=== PATIENT | male | born 1965 | race Caucasian/White ===

== ENCOUNTER 2016-09-08 19:31 | Emergency (ER) | payer BC, OTHER ==
[2016-09-08] MEDS ORDERED: OXYCODONE-ACETAMINOPHEN 5-325 MG TABLET PO ONE (19:49)
[2016-09-08] MEDS ORDERED: LIDOCAINE 1% INJ-PF (10 MG/ML) 30 ML SDV INJ ONE (19:49)
[2016-09-08] MEDS ORDERED: CEPHALEXIN 500 MG CAPSULE PO ONE (19:50)
[2016-09-08] MEDS ORDERED: DIPH/PERTUSS(ACELL)/TETANUS VAC/PF 0.5 ML SYR (>=10YO) IM ONE (19:50)
--- NOTE | 2016-09-08 21:28 | ER Document Report ---
HPI - HPI Patient complains to provider of: laceration Pain Level: 2 Context: patient is a 51 year old male who was working with a grinding wheel when it fell apart and caused pain and laceration to dorsal aspect of left 5th mid phalanx. tetanus not UTD, no PMH, no PCP - DERM Skin Color: Normal, [place] Past Medical History - Social History Smoking Status: Current Every Day Smoker Family History: Reviewed & Not Pertinent Patient has suicidal ideation: No Patient has homicidal ideation: No - Past Medical History Cardiac Medical History: Reports: Hx Hypercholesterolemia, Hx Hypertension Pulmonary Medical History: Reports: Hx Bronchitis Renal/ Medical History: Reports: Hx Kidney Stones, Hx Peritoneal Dialysis - [place] Malignancy Medical History: Reports Hx Skin Cancer Past Surgical History: Reports: Hx Oral Surgery, Hx Umbilical Hernia - Immunizations Immunizations up to date: Yes Hx Diphtheria, Pertussis, Tetanus Vaccination: Yes Vertical Provider Document - CONSTITUTIONAL Agree With Documented VS: Yes Exam Limitations: No Limitations General Appearance: WD/WN, No Apparent Distress - INFECTION CONTROL TRAVEL OUTSIDE OF THE [place] IN LAST 30 DAYS: No - RESPIRATORY O2 Sat by Pulse Oximetry: 97 - CARDIOVASCULAR Pulses: Normal: Radial Notes: capillary refill < 2 seconds in all UE digits - MUSCULOSKELETAL/EXTREMETIES Musculoskeletal/Extremeties: MAEW, FROM, Tender, No Edema, Eccymosis Notes: no evidence of vessel or tendon involvement - NEURO Level of Consciousness: Awake, Alert, Appropriate Motor/Sensory: No Motor Deficit, No Sensory Deficit - DERM Integumentary: Laceration - 3cm Course - Re-evaluation Re-evalutation: 09/08/16 21:29 lac irrigated and closed with 6.0 nylon. PO keflex given. xray cannot r/o occult fracture, will reimage in 7-10 days - Vital Signs Vital signs: Temp Pulse Resp BP Pulse Ox 98.1 F 88 14 156/101 H 97 09/08/16 19:33 09/08/16 19:33 09/08/16 19:33 09/08/16 19:33 09/08/16 19:33 Procedures - Laceration/Wound Repair Left Finger Wound length (cm): 3 Wound's Depth, Shape: Superficial, Linear Laceration pre-procedure: Sterile PPE donned, Betadine prep applied, Sterile drapes applied Anesthetic type: 1% Lidocaine Volume Anesthetic (mLs): 4 Wound explored: Clean, No foreign body removed Irrigated w/ Saline (mLs): 200 - betadine as well Wound Debrided: Minimal Wound Repaired With: Sutures Suture Size/Type: 6:0, Nylon Number of Sutures: 4 Layer Closure?: No Post-procedure wound care: Sterile dressing applied Post-procedure NV exam normal: Yes Complications: No Discharge - Discharge Clinical Impression: Laceration Condition: Good Disposition: HOME, SELF-CARE Instructions: Antibiotic Ointment Protection ([facility]), Soap Cleansing ([facility]), Tetanus Immunization Given ([facility]), Prophylactic Antibiotic ([facility]), Laceration Care ([facility]), Oral Narcotic Medication ([facility]), Use of Yedv-Nny-Qyqlyrh Ibuprofen ( [facility]) Additional Instructions: You will need to follow up in 8-10 days to have your finger re-imaged to rule out fracture and have your stitches removed. Prescriptions: Tramadol HCl 50 mg PO Q8HP PRN #6 tablet PRN Reason: Cephalexin Monohydrate [Keflex 500 mg Capsule] 500 mg PO BID 7 Days Forms: Elevated Blood Pressure
[2016-09-09 06:39] VITALS: BP 137/95
== END 2016-09-08 21:35 | disposition home or self-care (01) ==
LOC: ER 19:31
PROC: 0HQGXZZ Repair Left Hand Skin, External Approach (ICD-10-PCS; principal; 2016-09-08)
DX: S61.217A Laceration without foreign body of left little finger without damage to nail, initial encounter (principal); W29.8XXA Contact with other powered hand tools and household machinery, initial encounter; Z23 Encounter for immunization; F17.200 Nicotine dependence, unspecified, uncomplicated; E78.00 Pure hypercholesterolemia, unspecified; I10 Essential (primary) hypertension; Z87.442 Personal history of urinary calculi; Z85.828 Personal history of other malignant neoplasm of skin
CPT/HCPCS: 12002; 99283; 90471; 73130; 90715; J3490

== ENCOUNTER 2018-06-05 09:30 | Emergency (ER) | payer BC, OTHER ==
[2018-06-05] MEDS ORDERED: ASPIRIN 81 MG TABLET, CHEWABLE PO ONE (09:51)
--- NOTE | 2018-06-05 09:52 | ER Document Report ---
ED General - General Chief Complaint: Shoulder Pain Stated Complaint: LEFT SHOULDER PAIN Time Seen by Provider: 06/05/18 09:32 Mode of Arrival: Ambulatory Information source: Patient Notes: 53 male presents to ED for complaint of left shoulder pain times a week. He states on vacation he had right shoulder pain that traveled to the left shoulder blade. He states it came around to his right abdomen up to his epigastric area. He states last night it moved up the center of his chest into his jaw. He has a history of elevated blood pressure and his blood pressure is elevated at this time of 173/114. He is on lisinopril hydrochlorothiazide. TRAVEL OUTSIDE OF THE [place] IN LAST 30 DAYS: No - HPI Onset: Last week Onset/Duration: Gradual Severity: Severe Pain Level: 5 Associated symptoms: Other - See HPI Exacerbated by: Denies Relieved by: Denies Similar symptoms previously: Yes Recently seen / treated by doctor: Yes - Related Data Allergies/Adverse Reactions: No Known Allergies Allergy (Verified 06/05/18 09:31) Past Medical History - General Information source: Patient - Social History Smoking Status: Never Smoker Cigarette use (# per day): No Chew tobacco use (# tins/day): No Smoking Education Provided: No Frequency of alcohol use: Social Drug Abuse: None Lives with: Family Family History: Reviewed & Not Pertinent Patient has suicidal ideation: No Patient has homicidal ideation: No - Past Medical History Cardiac Medical History: Reports: Hx Hypercholesterolemia, Hx Hypertension Pulmonary Medical History: Reports: Hx Bronchitis EENT Medical History: Reports: None Neurological Medical History: Reports: None Endocrine Medical History: Reports: None Renal/ Medical History: Reports: Hx Kidney Stones Malignancy Medical History: Reports Hx Skin Cancer GI Medical History: Reports: None Musculoskeletal Medical History: Reports None Skin Medical History: Reports None Psychiatric Medical History: Reports: None Traumatic Medical History: Reports: None Infectious Medical History: Reports: None Past Surgical History: Reports: Hx Oral Surgery, Hx Umbilical Hernia - Immunizations Immunizations up to date: Yes Hx Diphtheria, Pertussis, Tetanus Vaccination: Yes Review of Systems - Review of Systems Constitutional: No symptoms reported EENT: No symptoms reported Cardiovascular: No symptoms reported Respiratory: No symptoms reported Gastrointestinal: Abdominal pain - Epigastric radiates up through the chest to the jaw, Nausea Genitourinary: No symptoms reported Male Genitourinary: No symptoms reported Musculoskeletal: Back pain - Subscapular Skin: No symptoms reported Hematologic/Lymphatic: No symptoms reported Neurological/Psychological: No symptoms reported -: Yes All other systems reviewed and negative Physical Exam - Vital signs Vitals: Temp Pulse Resp BP Pulse Ox 98.4 F 96 16 173/114 H 100 06/05/18 09:37 06/05/18 09:37 06/05/18 09:37 06/05/18 09:37 06/05/18 09:37 Interpretation: Normal - General General appearance: Appears well, Alert - HEENT Head: Normocephalic, Atraumatic Eyes: Normal Pupils: PERRL - Respiratory Respiratory status: No respiratory distress Chest status: Nontender Breath sounds: Normal Chest palpation: Normal - Cardiovascular Rhythm: Regular Heart sounds: Normal auscultation Murmur: No - Abdominal Inspection: Normal Distension: No distension Bowel sounds: Normal Tenderness: Tender - Epigastric Organomegaly: No organomegaly - Back Back: Normal, Nontender - Extremities General upper extremity: Normal inspection, Nontender, Normal color, Normal ROM, Normal temperature General lower extremity: Normal inspection, Nontender, Normal color, Normal ROM, Normal temperature, Normal weight bearing. No: Ottoniel's sign - Neurological Neuro grossly intact: Yes Cognition: Normal Orientation: AAOx4 [place] Coma Scale Eye Opening: Spontaneous [place] Coma Scale Verbal: Oriented [place] Coma Scale Motor: Obeys Commands [place] Coma Scale Total: 15 Speech: Normal Motor strength normal: LUE, RUE, LLE, RLE Sensory: Normal - Psychological Associated symptoms: Normal affect, Normal mood - Skin Skin Temperature: Warm Skin Moisture: Dry Skin Color: Normal Course - Re-evaluation Re-evalutation: 06/05/18 21:14 Dr. Coleman was consulted about this patient this morning. He recommended that complete cardiac workup be completed. When the cardiac workup was negative on the first test he stated that he would need a repeat troponin and EKG. The repeat EKG and troponin were unchanged from the first ones. He stated patient could be discharged home. Patient was discharged home with a copy of all of his blood work his x-rays and CD of the x-rays to [facility]. Patient was also discharged home with muscle relaxers for the scapular pain. - Vital Signs Vital signs: Temp Pulse Resp BP Pulse Ox 98.3 F 96 20 152/94 H 96 06/05/18 14:01 06/05/18 09:37 06/05/18 14:38 06/05/18 14:38 06/05/18 14:38 - Laboratory Result Diagrams: 06/05/18 09:45 06/05/18 09:45 Laboratory results interpreted by me: 06/05/18 09:45 Glucose 133 H - Diagnostic Test Radiology reviewed: Image reviewed, Reports reviewed Discharge - Discharge Clinical Impression: Pain of left scapula Upper respiratory infection Qualifiers: URI type: unspecified URI Qualified Code(s): J06.9 - Acute upper respiratory infection, unspecified Chest pain Qualifiers: Chest pain type: unspecified Qualified Code(s): R07.9 - Chest pain, unspecified Condition: Stable Disposition: HOME, SELF-CARE Additional Instructions: You were seen for upper back pain that progressed around to your abdomen up to your chest and into your jaw. You state you had been coughing before the pain started. UPPER RESPIRATORY ILLNESS: You have a viral infection of the respiratory passages -- a "cold." This common infection causes nasal congestion, drainage, and often sore throat and cough. It is highly contagious. The disease usually lasts about 10 to 14 days. There is no "cure" for the viral infection -- it must run its course. If there is a complication, such as bacterial infection in the nose, sinuses, middle ear, or bronchial tubes, antibiotics may be required. The antibiotics won't affect the virus. Drink plenty of fluids. A humidifier may help. An expectorant medication or decongestant may make you more comfortable. Use acetaminophen or ibuprofen for fever or aches. See the doctor if fever persists over two days, if there is any significant worsening of your symptoms, or if you simply fail to improve as expected. CHEST PAIN OF UNCLEAR CAUSE: The exact cause of your chest pain isn't clear. Fortunately, there is no evidence of a dangerous medical condition. Further testing may be required to find the source of the pain. Most often, we find that this pain is coming from the chest wall -- the muscles or rib joints in the chest. But chest pain can come from the lung and lung lining, the esophagus, the heart valves or heart lining, and even the stomach or gallbladder. Rest. Eat lightly until the pain is gone. We may prescribe medicine for pain and inflammation. You should call the physician immediately if the pain radiates to the shoulder, jaw or arms; if you start to run a fever or develop a cough; or if you develop shortness of breath, or other new or alarming symptoms. ASPIRIN: Aspirin has been shown to have a beneficial effect on blood circulation by reducing the clotting effect of platelets in the blood. These beneficial effects can be achieved by taking just a single baby (81 mg) aspirin a day. It is recommended that any person over the age of forty take a single baby aspirin every day for heart and brain circulation, unless you are allergic to aspirin or have some significant bleeding disorder. It is strongly recommended that people who have proven cardiac or blood circulation disturbances should take a baby aspirin every day. COUGH-SUPPRESSANT & EXPECTORANT MEDICATION: You are to use a cough medication as needed for relief of symptoms. This medicine is a combination of an expectorant (to make the mucous thinner and more easily "coughed up") and a cough suppressant (to reduce the frequency of coughing). The cough-suppressant medicine is related to narcotics. You may experience mild nausea and sleepiness. Some patients who are very sensitive to narcotics may have stomach pain from this medicine. Taking the medicine with food reduces these side effects. Do not drive or work with machinery until you know how this medicine affects you. The expectorant should have no side effects. Iodine-containing expectorants (such as organidin) should not be taken by persons with active thyroid disease unless approved by your doctor. Call the doctor if you develop shortness of breath, hives, rash, itching, lightheadedness, or severe nausea and vomiting. FOLLOW-UP CARE: If you have been referred to a physician for follow-up care, call the physicians office for an appointment as you were instructed or within the next two days. If you experience worsening or a significant change in your symptoms, notify the physician immediately or return to the Emergency Department at any time for re-evaluation. Prescriptions: Cyclobenzaprine HCl [Flexeril 10 mg Tablet] 10 mg PO TIDP PRN #15 tab PRN Reason: Forms: Elevated Blood Pressure, Return to Work
[2018-06-05 10:04] LABS: ABSOLUTE EOSINOPHILS # (AUTO) 0.1 10^3/uL (0.0-0.6); ABSOLUTE LYMPHOCYTES (AUTO) 1.6 10^3/uL (0.5-4.7); ABSOLUTE MONOCYTES (AUTO) 0.7 10^3/uL (0.1-1.4); ABSOLUTE NEUT (AUTO) 3.4 10^3/uL (1.7-8.2); BASOPHILS % (AUTO) 0.6 % (0-2); EOSINOPHILS % (AUTO) 1.2 % (0-6); HEMATOCRIT 46.5 % (37.9-51.0); HEMOGLOBIN 16.2 g/dL (13.5-17.0); LYMPHOCYTES % (AUTO) 27.6 % (13-45); MEAN CORPUSCULAR HEMOGLOBIN 29.3 pg (27.0-33.4); MEAN CORPUSCULAR VOLUME 84 fl (80-97); MONOCYTES % (AUTO) 12.2 % (3-13); PLATELET COUNT 263 10^3/uL (150-450); RED BLOOD COUNT 5.54 10^6/uL (4.35-5.55); RED CELL DISTRIBUTION WIDTH 12.7 % (11.5-14.0); SEGMENTED NEUTROPHILS % (AUTO) 58.4 % (42-78); TOTAL CELLS COUNTED % (AUTO) 100 %; WHITE BLOOD COUNT 5.9 10^3/uL (4.0-10.5)
[2018-06-05 10:20] LABS: ALANINE AMINOTRANSFERASE 43 U/L (21-72); ALBUMIN 4.6 g/dL (3.5-5.0); ALKALINE PHOSPHATASE 86 U/L (38-126); ANION GAP 11 (5-19); ASPARTATE AMINO TRANSFERASE 38 U/L (17-59); BILIRUBIN,DIRECT 0.2 mg/dL (0.0-0.4); BILIRUBIN,TOTAL 0.6 mg/dL (0.2-1.3); BLOOD UREA NITROGEN 16 mg/dL (7-20); CALCIUM 9.5 mg/dL (8.4-10.2); CARBON DIOXIDE 27 mmol/L (22-30); CHLORIDE 100 mmol/L (98-107); GLUCOSE 133 mg/dL (75-110); LIPASE 51.7 U/L (23-300); POTASSIUM 3.9 mmol/L (3.6-5.0); TOTAL PROTEIN 7.6 g/dL (6.3-8.2)
--- NOTE | 2018-06-05 10:22 | RADIOLOGY REPORT (SQ) ---
EXAM DESCRIPTION: CHEST 2 VIEWS COMPLETED DATE/TIME: 06/05/2018 10:01 am REASON FOR STUDY: subscapular, and jaw pain COMPARISON: None. EXAM PARAMETERS: NUMBER OF VIEWS: two views TECHNIQUE: Digital Frontal and Lateral radiographic views of the chest acquired. RADIATION DOSE: NA LIMITATIONS: none FINDINGS: LUNGS AND PLEURA: There are streaky infiltrates noted in right perihilar region consistent with in atelectasis or pneumonia. MEDIASTINUM AND HILAR STRUCTURES: No masses or contour abnormalities. HEART AND VASCULAR STRUCTURES: Heart normal size. No evidence for failure. BONES: Upper dorsal scoliosis convex left. HARDWARE: None in the chest. OTHER: No other significant finding. IMPRESSION: Right perihilar discoid atelectasis or pneumonia. TECHNICAL DOCUMENTATION: JOB ID: [id number] [employer]- All Rights Reserved Reading location - IP/workstation name: [email or web address]
[2018-06-05 10:31] LABS: APPEARANCE,URINE CLEAR; BILIRUBIN,URINE NEGATIVE (NEGATIVE); COLOR,URINE STRAW; GLUCOSE, URINE NEGATIVE (NEGATIVE); KETONES,URINE NEGATIVE (NEGATIVE); LEUKOCYTE ESTERASE,URINE NEGATIVE (NEGATIVE); NITRITE,URINE NEGATIVE (NEGATIVE); PROTEIN,URINE NEGATIVE (NEGATIVE); URINE SPECIFIC GRAVITY 1.009; UROBILINOGEN,URINE NEGATIVE mg/dL (<2.0)
--- NOTE | 2018-06-05 10:44 | RADIOLOGY REPORT (SQ) ---
EXAM DESCRIPTION: U/S ABDOMEN LIMITED W/O DOP COMPLETED DATE/TIME: 06/05/2018 10:33 am REASON FOR STUDY: pain upper abdomen and sub scapula COMPARISON: None. TECHNIQUE: Dynamic and static grayscale images acquired of the abdomen and recorded on PACS. Additio nal selected color Doppler and spectral images recorded. LIMITATIONS: None. FINDINGS: PANCREAS: No masses. Visualized pancreatic duct normal caliber. LIVER: No masses. Increased echogenicity. LIVER VASCULATURE: Normal directional flow of the main portal vein and hepatic veins. GALLBLADDER: No stones. Normal wall thickness. Trace pericholecystic fluid. ULTRASOUND-DETECTED CARNES'S SIGN: Negative. INTRAHEPATIC DUCTS AND COMMON DUCT: CBD and intrahepatic ducts normal caliber. No filling defects. INFERIOR VENA CAVA: Normal flow. AORTA: Ectasia of the proximal abdominal aorta measuring up to 3.0 cm. RIGHT KIDNEY: Normal size. Normal echogenicity. No solid or suspicious masses. No hydronephrosis. No calcifications. PERITONEAL AND RIGHT PLEURAL SPACE: No ascites or effusions. OTHER: No other significant findings. IMPRESSION: 1. Hepatic steatosis. 2. Trace pericholecystic fluid, of uncertain significance as an isolated finding. No gallstones. N o gallbladder wall thickening. No biliary ductal dilatation. Negative sonographic Carnes's sign. C T may be used to further evaluate otherwise unexplained abdominal pain. 3. Ectasia of the proximal abdominal aorta measuring up to 3.0 cm. This could likewise be further e valuated by CT in the setting of acute abdominal pain. TECHNICAL DOCUMENTATION: JOB ID: [id number] [employer]- All Rights Reserved Reading location - IP/workstation name: [email or web address]
--- NOTE | 2018-06-05 12:45 | EKG REPORT ---
SEVERITY:- OTHERWISE NORMAL ECG - SINUS RHYTHM BORDERLINE LEFT AXIS DEVIATION : Confirmed by: Maritza Day MD 05-Jun-2018 12:44:13
[2018-06-05 14:40] VITALS: BP 152/94
--- NOTE | 2018-06-05 22:13 | EKG REPORT ---
SEVERITY:- OTHERWISE NORMAL ECG - SINUS RHYTHM LEFT AXIS DEVIATION : Confirmed by: Maritza Day MD 05-Jun-2018 22:12:15
== END 2018-06-05 14:51 | disposition home or self-care (01) ==
LOC: ER 09:30
DX: M89.8X1 Other specified disorders of bone, shoulder (principal); J06.9 Acute upper respiratory infection, unspecified; R07.9 Chest pain, unspecified; R10.13 Epigastric pain; I10 Essential (primary) hypertension; Z87.442 Personal history of urinary calculi; Z85.828 Personal history of other malignant neoplasm of skin; R11.0 Nausea; R68.84 Jaw pain
CPT/HCPCS: 36415; 71046; 76705; 80053; 81001; 83690; 84484; 85025; 93005; 93010; 99284

== ENCOUNTER → 2018-09-06 | Outpatient (CLI) | payer BC, OTHER | LOC: OD 15:42 | PROVIDERS: ATTEND Otolaryngology | DX: H65.23 Chronic serous otitis media, bilateral (principal) | CPT/HCPCS: 36415; 82785; 86003 ==